=== PATIENT | female | born 1990 | race Caucasian/White ===

== ENCOUNTER 2022-11-05 22:39 | Emergency (ER) | payer OTHER, SELFPAY ==
[2022-11-05 22:44] VITALS: BP 129/74; PULSE 96; RESP 16; TEMP 37.1; O2SAT 97; BMI 28.0
--- NOTE | 2022-11-05 23:42 | ED.FALL1 ---
HPI - Fall General Chief Complaint: Fall Stated Complaint: FALL BACK AND ADB PAIN Time Seen by Provider: 11/05/22 23:33 Source: patient Source comment: patient Mode of arrival: walk-in Limitations: no limitations History of Present Illness HPI Narrative: The patient was at a friends, heard her child cry and ran up the stairs from the basement to see what was the matter. She lost her footing and fell, using her left forearm and her right hand to catch herself. She struck the left abdomen against the basement stairs. No head injury or LOC. No neck or back pain. She is 31 weeks . She feels the baby move but continues to have pain in the left abdomen. No meds taken for pain after the fall, which occurred around 9pm. She took Tylenol around 6pm at home. Related Data Allergies Allergy/AdvReac Type Severity Reaction Status Date / Time amoxicillin Allergy Verified 11/05/22 22:49 Penicillins Allergy Verified 11/05/22 22:49 [facility] Social History Smoking status: Current every day smoker Exam Narrative Exam Narrative: Nurses note and vital signs reviewed and patient is not hypoxic. afebrile General: The patient appears well and in no apparent distress. Patient is resting comfortably on cart. GCS = 15. Skin: Warm, dry, no pallor noted. Head: Normocephalic, atraumatic Neck: Supple, trachea mid-line. Full ROM and no cervical spinal tenderness. Eyes: PERRLA, EOMI ENT: No facial or oral injury noted Cardiovascular: Regular Rate and Rhythm Respiratory: Patient is in no distress, no accessory muscle use, lungs are clear to auscultation, no wheezing, rales or rhonchi Back: No thoracic or lumbar tenderness to palpation. Musculoskeletal: no sign of long bone fracture, no tenderness, no swelling. Moves all four extremities in all modalities with 5/5 strength. GI: Normal bowel sounds, gravid uterus. Suprapubic and LLQ tenderness to palpation, . No rebound, guarding, or rigidity noted. Neurological: A&O x4, normal equal social media developer strength, normal finger to nose, normal speech, normal coordination, normal motor, normal sensory. Psychiatric: Cooperative Constitutional Vital Signs - 24 hr 11/05/22 22:44 Temperature 98.7 F Pulse Rate [Monitor] 96 H Respiratory Rate 16 Blood Pressure [Left Arm] 129/74 H Pulse Oximetry 97 Oxygen Delivery Method Room Air Course Vital Signs Vital signs: Vital Signs Temperature 98.7 F 11/05/22 22:44 Pulse Rate 96 H 11/05/22 22:44 Respiratory Rate 16 11/05/22 22:44 Blood Pressure 129/74 H 11/05/22 22:44 Pulse Oximetry 97 11/05/22 22:44 Oxygen Delivery Method Room Air 11/05/22 22:44 Temperature 98.7 F 11/05/22 22:44 Pulse Rate 96 H 11/05/22 22:44 Respiratory Rate 16 11/05/22 22:44 Blood Pressure 129/74 H 11/05/22 22:44 Pulse Oximetry 97 11/05/22 22:44 Oxygen Delivery Method Room Air 11/05/22 22:44 MDM - Fall MDM Narrative Medical decision making narrative: patient fell and sustained blunt trauma to the left abdomen against the basement stairs. No long bone fracture identified and she did not hit her head or sustain injuries to the neck or back that require spinal radiographic testing. She was discharged from our ED and [facility]. her SENIOR GENETIC COUNSELOR is Dr Fuentes in [place]. She will need to see him for follow up Discharge Plan Discharge Chief Complaint: Fall Clinical Impression: Abdominal pain Patient Disposition: Home, Self-Care Time of Disposition Decision: 23:39 Additional Instructions: Patient will be discharged from the ED and go [facility] to have a >20 week evaluation after blunt abdominal trauma. Stand Alone Forms: Portal Instructions Referrals: JEZ FUENTES [Physician] - As needed
[2022-11-06] MEDS: ACETAMINOPHEN 500 MG TABLET 1000 MG PO (00:03)
== END 2022-11-06 00:06 | disposition home or self-care (01) ==
PROVIDERS: Emergency Provider Emergency Medicine
DX: O26.893 Other specified pregnancy related conditions, third trimester (principal); R10.9 Unspecified abdominal pain; Z3A.31 31 weeks gestation of pregnancy; Z91.81 History of falling
CPT/HCPCS: 99282

== ENCOUNTER 2023-05-06 17:24 | Emergency (ER) | payer OTHER, SELFPAY ==
[2023-05-06 17:30] VITALS: BP 137/89; PULSE 86; RESP 18; TEMP 36.6; O2SAT 98; BMI 29.1
--- NOTE | 2023-05-06 17:42 | XR_ITS ---
The [address] [address] Patient Name: AGAPITO LÓPEZ MRN: [id number] date: 1990 Sex: F Assigned Patient Location: ER Current Patient Location: Accession/Order Number: [id number] Exam Date: 05/06/2023 18:10 Report Date: 05/06/2023 18:37 At the request of: LEFTY PULIDO Procedure: XR cervical spine 2-3V EXAM: XR cervical spine 2-3V HISTORY: Neck pain COMPARISON: None. TECHNIQUE: 3 views FINDINGS: Maintenance of the normal cervical lordosis. Vertebral body heights and alignments exhibit no fracture or listhesis. The dens and lateral masses of C1 are symmetric. The intervertebral disc spaces are normal. No prevertebral soft tissue edema. XR/XR cervical spine 2-3V IMPRESSION: No visualized abnormality Electronically authenticated by: LILY BOWMAN Date: 05/06/2023 18:37
--- NOTE | 2023-05-06 17:42 | XR_ITS ---
[address] [address] Patient Name: AGAPITO LÓPEZ MRN: [id number] date: 1990 Sex: F Assigned Patient Location: ER Current Patient Location: Accession/Order Number: [id number] Exam Date: 05/06/2023 18:10 Report Date: 05/06/2023 18:38 At the request of: LEFTY PULIDO Procedure: XR shoulder RT min 2V EXAM: XR shoulder RT min 2V HISTORY: Pain COMPARISON: None. TECHNIQUE: 4 views FINDINGS: No osseous lesion, fracture, dislocation or subluxation. Joint spaces are normal. No visualized effusion. No visualized soft tissue edema. XR/XR shoulder RT min 2V IMPRESSION: Normal x-rays Electronically authenticated by: LILY BOWMAN Date: 05/06/2023 18:38
--- NOTE | 2023-05-06 17:44 | ED.BACK1 ---
Documented by User: NOAH Shipman 05/06/23 18:27 HPI - Back Pain/Injury General Chief Complaint: Back Pain/Injury Stated Complaint: back pain Time Seen by Provider: 05/06/23 17:24 Source: patient Mode of arrival: walk-in History of Present Illness HPI Narrative: Patient is a 32-year-old female who presents to the emergency department for the evaluation of right posterior shoulder and neck pain for the last 5 to 6 days. She denies any mechanism of injury or trauma, she does have a 3-month-old. She states the pain started in the right scapula and now radiates to the right trapezius, right shoulder and into the left side of the neck. She denies any peripheral paresthesias. She is not concerned for . No medications taken prior to arrival. She is breast-feeding intermittently but is supplementing with formula and does not have any issue using formula primarily for the next several days. Related Data Previous Rx's Medication Instructions Recorded ketorolac 10 mg tablet 10 mg PO TID PRN pain #10 tabs 05/06/23 methocarbamol 750 mg tablet 750 mg PO TID PRN pain #10 tabs 05/06/23 prednisone 20 mg tablet 60 mg (3 x 20 mg) PO DAILY 3 days 05/06/23 #9 tabs Allergies Allergy/AdvReac Type Severity Reaction Status Date / Time amoxicillin Allergy Verified 11/05/22 22:49 Penicillins Allergy Verified 11/05/22 22:49 Review of Systems ROS Constitutional Denies: fever or chills Ears, nose, mouth, and throat Denies: throat pain Cardiovascular Denies: chest pain Respiratory Denies: shortness of breath or cough Gastrointestinal Denies: nausea or vomiting Genitourinary Denies: decreased urine ouput Musculoskeletal Reports: back pain, neck pain and extremity pain Integumentary/Breast Denies: rash Neurological Denies: headache Endocrine Denies: excessive urination PFSH PFSH Social History Smoking status: Current every day smoker Exam Narrative Exam Narrative: Gen.: Awake, alert, in no distress Head: Normocephalic, atraumatic ENT: Moist mucous membranes; no bony point tenderness of the posterior cervical spine with diffuse tenderness of the paraspinal muscles of the right cervical spine, right trapezius area and right scapula Respiratory: No respiratory distress Extremities: Moves extremities equally, no injuries noted, normal environmental laboratory technician 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 2+ right radial pulse. Back: No bony point tenderness of the T-spine Psych: Normal mood and affect Neuro: No focal neuro deficit Skin: Warm, dry, intact Constitutional Vital Signs, click to edit/add: Last Vital Signs Temp 97.8 F 05/06/23 17:30 Pulse 86 05/06/23 17:30 Resp 18 05/06/23 17:30 BP 137/89 05/06/23 17:30 Pulse Ox 98 05/06/23 17:30 O2 Del Method Room Air 05/06/23 17:30 Course Vital Signs Vital signs: Vital Signs Temperature 97.8 F 05/06/23 17:30 Pulse Rate 86 05/06/23 17:30 Respiratory Rate 18 05/06/23 17:30 Blood Pressure 137/89 05/06/23 17:30 Pulse Oximetry 98 05/06/23 17:30 Oxygen Delivery Method Room Air 05/06/23 17:30 Temperature 97.8 F 05/06/23 17:30 Pulse Rate 86 05/06/23 17:30 Respiratory Rate 18 05/06/23 17:30 Blood Pressure 137/89 05/06/23 17:30 Pulse Oximetry 98 05/06/23 17:30 Oxygen Delivery Method Room Air 05/06/23 17:30 MDM - Back Pain/Injury MDM Narrative Medical decision making narrative: X-rays of the cervical spine and right shoulder with no evidence of acute bony abnormalities. Patient is neurovascularly intact. She was instructed to use formula instead of breast-feeding for the next several days while on medication. Rest, ice, gentle stretching. Follow-up with PCP and return to the ER if symptoms change or worsen Medical Records Attestation: I reviewed the patient's medical records. Discharge Plan Discharge Chief Complaint: Back Pain/Injury Clinical Impression: Strain of right trapezius muscle Patient Disposition: Home, Self-Care Time of Disposition Decision: 18:24 Condition: Good Prescriptions / Home Meds: New prednisone 20 mg tablet 60 mg PO DAILY 3 Days Qty: 9 0RF ketorolac 10 mg tablet 10 mg PO TID PRN (Reason: pain) Qty: 10 0RF methocarbamol 750 mg tablet 750 mg PO TID PRN (Reason: pain) Qty: 10 0RF Instructions: Muscle Strain (ED) Stand Alone Forms: Portal Instructions Referrals: HASEEB JEROME [Primary Care Provider] - 1 week Discharge Date/Time: 05/06/23 18:32 Documented by User: Brayden Sandoval MD 05/06/23 20:11 HPI - Back Pain/Injury General Chief Complaint: Back Pain/Injury Stated Complaint: back pain Time Seen by Provider: 05/06/23 17:24 Related Data Previous Rx's Medication Instructions Recorded ketorolac 10 mg tablet 10 mg PO TID PRN pain #10 tabs 05/06/23 methocarbamol 750 mg tablet 750 mg PO TID PRN pain #10 tabs 05/06/23 prednisone 20 mg tablet 60 mg (3 x 20 mg) PO DAILY 3 days 05/06/23 #9 tabs Allergies Allergy/AdvReac Type Severity Reaction Status Date / Time amoxicillin Allergy Verified 11/05/22 22:49 Penicillins Allergy Verified 11/05/22 22:49 PFSH PFSH Social History Smoking status: Current every day smoker Exam Constitutional Vital Signs, click to edit/add: Last Vital Signs Temp 97.8 F 05/06/23 17:30 Pulse 86 05/06/23 17:30 Resp 18 05/06/23 17:30 BP 137/89 05/06/23 17:30 Pulse Ox 98 05/06/23 17:30 O2 Del Method Room Air 05/06/23 17:30 Course Vital Signs Vital signs: Vital Signs Temperature 97.8 F 05/06/23 17:30 Pulse Rate 86 05/06/23 17:30 Respiratory Rate 18 05/06/23 17:30 Blood Pressure 137/89 05/06/23 17:30 Pulse Oximetry 98 05/06/23 17:30 Oxygen Delivery Method Room Air 12/13/23 17:30 Temperature 97.8 F 05/06/23 17:30 Pulse Rate 86 05/06/23 17:30 Respiratory Rate 18 05/06/23 17:30 Blood Pressure 137/89 05/06/23 17:30 Pulse Oximetry 98 05/06/23 17:30 Oxygen Delivery Method Room Air 05/06/23 17:30 MDM - Back Pain/Injury MDM Narrative Medical decision making narrative: X-rays of the cervical spine and right shoulder with no evidence of acute bony abnormalities. Patient is neurovascularly intact. She was instructed to use formula instead of breast-feeding for the next several days while on medication. Rest, ice, gentle stretching. Follow-up with PCP and return to the ER if symptoms change or worsen I, Dr Sandoval, have reviewed the above progress note and course of action in the ER; agree with the above. I have gone over history and physical, and discussed disposition and treatment plan with the patient. Discharge Plan Discharge Chief Complaint: Back Pain/Injury Clinical Impression: Strain of right trapezius muscle Patient Disposition: Home, Self-Care Time of Disposition Decision: 18:24 Condition: Good Prescriptions / Home Meds: New prednisone 20 mg tablet 60 mg PO DAILY 3 Days Qty: 9 0RF ketorolac 10 mg tablet 10 mg PO TID PRN (Reason: pain) Qty: 10 0RF methocarbamol 750 mg tablet 750 mg PO TID PRN (Reason: pain) Qty: 10 0RF Instructions: Muscle Strain (ED) Stand Alone Forms: Portal Instructions Referrals: HASEEB JEROME [Primary Care Provider] - 1 week Discharge Date/Time: 05/06/23 18:32
[2023-05-06] MEDS: KETOROLAC TROMETHAMINE 60 MG/2 ML VIAL IM (17:49)
== END 2023-05-06 18:32 | disposition home or self-care (01) ==
PROVIDERS: Emergency Provider Emergency Medicine
DX: S46.811A Strain of other muscles, fascia and tendons at shoulder and upper arm level, right arm, initial encounter (principal); X58.XXXA Exposure to other specified factors, initial encounter
CPT/HCPCS: 72040; 73030; 96372; 99284

== ENCOUNTER 2023-12-30 07:46 | Emergency (ER) | payer OTHER, SELFPAY ==
[2023-12-30 07:51] VITALS: BP 186/117; PULSE 96; TEMP 36.7; O2SAT 98; BMI 28.0
[2023-12-30 07:56] VITALS: BP 182/100
--- OUTSIDE RECORDS SUMMARY | 2023-12-30 08:02 | XMS_ITS | CCD ---
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 Pass (12/14/23 11:21 PM) Normal [facility] Man Sero SARS-CoV+SARS-CoV-2 (COVID-19) Ag IA.rapid Ql (Resp) Not Detected 1 (12/14/23 11:21 PM) Normal Not Detected [facility] Man Sero Comment on above: Interpretive Data: Jodie lai SquareKey Veritor System for Rapid Detection of SARS-CoV-2 is a chromatographic digital immunoassay intended for the direct and qualitative detection of SARS-CoV-2 nucleocapsid antigens in nasal swabs from individuals who are suspected of COVID-19 by their healthcare provider within the first five days of the onset of symptoms. Negative results should be treated as presumptive, do not rule out SARS-CoV-2 infection and should not be used as the sole basis for treatment or patient management decisions, including infection control decisions. Negative results should be considered in the context of a patient s recent exposures, history and the presence of clinical signs and symptoms consistent with COVID-19, and confirmed with a molecular assay, if necessary, for patient management. For in vitro diagnostic use. In the [facility], only for use under an Emergency Use Authorization. In the [place], this test has not been FDA cleared or approved; this test has been authorized by FDA under an EUA for use by authorized laboratories; use by laboratories certified under the CLIA, 42 U.S.C. 263a, that meet requirements to perform moderate, high, or waived complexity tests and at the Point of Care (POC), i.e., in patient care settings operating under a CLIA Certificate of Waiver, Certificate of Compliance, or Certificate of Accreditation. This test has been authorized only for the detection of proteins from SARS-CoV-2, not for any other viruses or pathogens; and, in the [facility], this test is only authorized for the duration of the declaration that circumstances exist justifying the authorization of emergency use of in vitro diagnostics for detection and/or diagnosis of the virus that causes COVID-19 under Section 564(b)(1) of the Act, 21 U.S.C. 360bbb-3(b)(1), unless the authorization is terminated or revoked sooner. Rapid COVID Antigen ([facility])on 12-14-2023 Rapid COV Int NEG Ctl Pass Normal [facility] Comment on above: Performed By: #### 2 [id number] #### [facility] [address] [place] [address] Rapid COV Int POS Ctl Pass Normal [facility] Comment on above: Performed By: #### 2 [id number] #### [facility] [address] [place] [address] SARS-CoV+SARS-CoV-2 (COVID-19) Ag IA.rapid Ql (Resp) Not detected Normal Not Detected [facility] Comment on above: Result Comment: The Gipis System for Rapid Detection of SARS-CoV-2 is a chromatographic digital immunoassay intended for the direct and qualitative detection of SARS-CoV-2 nucleocapsid antigens in nasal swabs from individuals who are suspected of COVID-19 by their healthcare provider within the first five days of the onset of symptoms. Negative results should be treated as presumptive, do not rule out SARS-CoV-2 infection and should not be used as the sole basis for treatment or patient management decisions, including infection control decisions. Negative results should be considered in the context of a patient?s recent exposures, history and the presence of clinical signs and symptoms consistent with COVID-19, and confirmed with a molecular assay, if necessary, for patient management. For in vitro diagnostic use. In the [place], only for use under an Emergency Use Authorization. In the [place], this test has not been FDA cleared or approved; this test has been authorized by FDA under an EUA for use by authorized laboratories; use by laboratories certified under the CLIA, 42 U.S.C. ?263a, that meet requirements to perform moderate, high, or waived complexity tests and at the Point of Care (POC), i.e., in patient care settings operating under a CLIA Certificate of Waiver, Certificate of Compliance, or Certificate of Accreditation. This test has been authorized only for the detection of proteins from SARS-CoV-2, not for any other viruses or pathogens; and, in the [place], this test is only authorized for the duration of the declaration that circumstances exist justifying the authorization of emergency use of in vitro diagnostics for detection and/or diagnosis of the virus that causes COVID-19 under Section 564(b)(1) of the Act, 21 U.S.C. ? 360bbb-3(b)(1), unless the authorization is terminated or revoked sooner. Performed By: #### 2 [id number] #### [address] [address] Physician Orderon 07-30-2023 Physician Order [id number] 4#1.00TIFF Normal [facility] Physician Orderon 03-23-2023 Physician Order [id number]# 1.00TIFF Normal [facility] Nursing Assessmenton 023 Nursing Assessment [id number] 6#1.00CD:127 Normal [facility] Insurance Correspondence Off iceon 01-13-2023 Insurance Correspondence Office [id number] 9#1.00CD:127 Normal [facility] Insurance Correspondence Off ice01-09-2023 Insurance Correspondence Office [id number] 1#1.00CD:127 Normal [facility] Progress Note-Physicianon Progress Note-Physician Patient: AGAPITO VARGAS Age: 32 years Sex: Female : 1990 Associated Diagnoses: None Author: MD Ean, Jeanine Telles Postoperative Information Post Operative Note: Day 1, OPTIMETRIX : [id number]. Anesthetic utilized: Regional: Epidural. Health Status Allergies: Allergic Reactions (Selected) Severe Cefdinir- Tongue swelling. Severity Not Documented Amoxil- Rash. Penicillins- Rash. Problem list: All Problems Tobacco use / SNOMED CT [id number] / Confirmed Added secondary to social history documentation. Maternal tobacco use / SNOMED CT 4311145168 / Confirmed Maternal tobacco use / SNOMED CT 0345960861 / Confirmed Maternal tobacco use / SNOMED CT 1698915000 / Confirmed History of low back pain / SNOMED CT 891233756 / Confirmed Missed miscarriage / SNOMED CT 4859648049 / Confirmed Smoker / SNOMED CT [id number] / Confirmed Added secondary to documentation in Social History. Hepatitis C / SNOMED CT [id number] / Confirmed pt. stated that she tested positive with first in 2015. pt. stated that she went to get treated after first , tested negative and was not treated. pt. states that she and children get tested at doctor's office, states she has not been positive since. History of drug use / SNOMED CT 5989905968 / Confirmed History of IBS / SNOMED CT 6301249168 / Confirmed Congenital fusion of lumbar spine / SNOMED CT 41376559 / Confirmed Extra lumbar vertebrae with sacralization Flank pain / SNOMED CT 796518053 / Confirmed Urine frequency / SNOMED CT 048580935 / Confirmed Straining to void / SNOMED CT 450231604 / Confirmed Ovarian cyst / SNOMED CT 564665514 / Confirmed Abnormal vaginal bleeding / SNOMED CT 892623507 / Confirmed Hematuria, microscopic / SNOMED CT 530765726 / Confirmed Leaking of urine / SNOMED CT 6139060261 / Confirmed Low back pain / SNOMED CT 783449000 / Confirmed Resolved: Low blood sugar / SNOMED CT 620191498 Resolved: / SNOMED CT 243357387 Resolved: / SNOMED CT 572486513 Resolved: / SNOMED CT 074927154 Resolved: / SNOMED CT 437184430 Resolved: / SNOMED CT 148677832 Resolved: Anxiety / SNOMED CT 62372830 Resolved: Depression / SNOMED CT 694318018 Physical Examination No qualifying data available General: Alert and oriented, No acute distress. Neurologic: Normal sensory, Normal motor function, No focal deficits. Review / Management Condition: Stable. Assessment Anesthetic outcome No post-epidural complications noted.. Epidural catheter removed by nursing staff. Epidural tip intact. Epidural site C/D/I without erythema, swelling or tenderness.. Plan Transfer/ Discharge: Condition stable. Normal [facility] Comment on above: Result Comment: Elec tronically Signed By: MD Mckoy Ahmad F\.br\Date and Time Signed: 01/09/23 09:50 EDT Progress Note-Physician Patient: AGAPITO VARGAS Age: 32 years Sex: Female : 1990 Associated Diagnoses: None Author: MD Mckoy Ahmad F Chief Complaint Intrauterine Health Status Allergies: Allergic Reactions (All) Severe Cefdinir- Tongue swelling. Severity Not Documented Amoxil- Rash. Penicillins- Rash. Current medications.Problem list: All Problems Tobacco use / SNOMED CT [id number] / Confirmed Added secondary to social history documentation. Maternal tobacco use / SNOMED CT 9019212706 / Confirmed Maternal tobacco use / SNOMED CT 6845779224 / Confirmed Maternal tobacco use / SNOMED CT 7177017814 / Confirmed History of low back pain / SNOMED CT 458660422 / Confirmed Missed miscarriage / SNOMED CT 8013600145 / Confirmed Smoker / SNOMED CT [id number] / Confirmed Added secondary to documentation in Social History. Hepatitis C / SNOMED CT [id number] / Confirmed pt. stated that she tested positive with first in 2016. pt. stated that she went to get treated after first , tested negative and was not treated. pt. states that she and children get tested at doctor's office, states she has not been positive since. History of drug use / SNOMED CT 6720339471 / Confirmed History of IBS / SNOMED CT 3983739468 / Confirmed Congenital fusion of lumbar spine / SNOMED CT 46915644 / Confirmed Extra lumbar vertebrae with sacralization Flank pain / SNOMED CT 199896538 / Confirmed Urine frequency / SNOMED CT 895097972 / Confirmed Straining to void / SNOMED CT 235166441 / Confirmed Ovarian cyst / SNOMED CT 873877029 / Confirmed Abnormal vaginal bleeding / SNOMED CT 636102939 / Confirmed Hematuria, microscopic / SNOMED CT 580615066 / Confirmed Leaking of urine / SNOMED CT 9828020749 / Confirmed Low back pain / SNOMED CT 682955623 / Confirmed Resolved: Low blood sugar / SNOMED CT 300509091 Resolved: / SNOMED CT 785839571 Resolved: / SNOMED CT 270948892 Resolved: / SNOMED CT 517405216 Resolved: / SNOMED CT 488809946 Resolved: / SNOMED CT 390189292 Resolved: Anxiety / SNOMED CT 93890212 Resolved: Depression / SNOMED CT 731198693 Review of Systems Respiratory: Negative. Cardiovascular: Negative. Hematology/Lymphatic s: No bruising tendency, No bleeding tendency. Neurologic: Negative. Physical Examination Please see VS flowsheet Please refer to Labor floor nursing records for ongoing vital signs, and for intake and output totals while epidural was running. General: Alert and oriented. Respiratory: Lungs are clear to auscultation. Cardiovascular: Regular rhythm. Neurologic: Alert. Review / Management Differential diagnosis: Active labor. OB Results Review Impression and Plan Plan Labor epidural at request of patient.. Procedure Epidural injection procedure Date/ Time: 01/04/2023 23:00:00. Confirmed: patient, procedure, site, safety procedures followed. Performed by: MD Mckoy Ahmad F. Informed consent: signed by patient. Indication: Active labor.. Location: lumbar. Physical Exam: Mallampati class 2 (soft palate, fauces, uvula visible), vital signs Documented vital signs. Preparation and technique: informed consent obtained (from patient before the procedure), positioned (sitting) sitting upright, sterile preparation of site (patient's back was sterilly prepped and draped) (in usual fashion, with 10 % povidone iodine, draped to expose affected area), local anesthesia (1% lidocaine was applied to the patient's back before the epidural was attempted) (lidocaine without epinephrine, _1_ cc injected subcutaneously), approach (midline) midline, needle (17 ga touhy) (placed via loss of resistance technique, At _L4-L5_ interspace.), aspiration (attempted for blood and CSF) Aspiration negative for blood and CSF, injectant (test dose consisting of 3 ml of 1.5% lodocaine with 1:200,000 epi) (test dose given, Epidural catheter inserted and secured at a depth of _11_ cm at skin., Test dose negative). [place] [employer] Anesthesiologists (ASA) physical status classification: Class II. Procedure tolerated: well. Complications: None. Professional Services Medications Administered: Epidural Medications Administered: Bolus dose consisted of 9 ml of 0.2% Ropivicaine, and 100 mcg of fentanyl (2 ml) . Then an epidural mix of 0.2% Ropivicaine, , and 2 mcg/ml of fentanyl was administered at 10 ml/hour with a PCEA bolus dose of 5cc q30min PRN. Normal [facility] Comment on above: Result Comment: Elec tronically Signed By: MD Ean, Jeanine Telles\.br\Date and Time Signed: 01/09/23 09:45 EDT Delivery Summaryon Delivery Summary DATE OF DELIVERY: 01/05/2023 The patient is a 32 year old, V, Para II, II, white female at 39 weeks and 1/7 who presented to Labor and Delivery for labor. Her course had been complicated by a smoking habit. She had artificial rupture of membranes, a gentle Pitocin augmentation which allowed her to make gradual progress through the latent phase of labor into the active phase of labor. She reached complete and complete and pushed through the second stage of labor spontaneously delivering a 6 pound 5 ounce male with Apgars of eight and eight. A short cord was noted at the time of delivery. Arterial cord pH obtained. The placenta delivered spontaneously intact. Uterus contracted down well. No repair was necessary and both mom and infant were doing okay in the Room. The was being monitored with pulse oximetry monitoring with good 100% sO2 regions with supplemental oxygen. Calos Fuentes M.D. lr Dictated: 01/07/2023 [id number] Transcribed: 01/07/2023 [facility] Comment on above: Result Comment: Elec tronically Signed By: Gina OLMOS, Calos Ledbetter\.br\Date and Time Signed: 01/08/23 08:01 EDT Discharge Instructionson Discharge Instructions [id number]#1.00CD:127 [facility] GetWell Education Videoon GetWell Education Video Patient Caring for Yourself After Vaginal Delivery Yes Normal [facility] GetWell Education Video : Getting Your Baby to Latch Yes Patient [facility] GetWell Education Video Patient How to Use a Breast Pump Yes [facility] GetWell Education Video 5 Ways to Prepare for Yes Patient Normal [facility] GetWell Education Video Yes Patient Car Seat Safety [facility] GetWell Education Video Yes Patient Your Baby [facility] GetWell Education Video Understanding Depression [facility] GetWell Education Video Safe Sleep for Babies Yes Patient [facility] GetWell Education Video Avoiding Infections in the Hospital Yes Patient [facility] GetWell Education Video Yes Patient How to Prevent Shaken Baby Syndrome [facility] GetWell Education Video Yes Patient How to Hand Express Breast Milk [facility] Inpatient Clinical Summaryon 01-07-2023 Inpatient Clinical Summary [address] [address] Clinical Summary Person Information Name: AGAPITO VARGAS Noemi/[facility] Age: 32 Years : 1990 Sex: Female PCP: Pily Garcia DO Marital Status: Single Phone: [phone] Race: White Ethnicity: Non- or Language: Citizen Of [place] Visit Id: Visit Reason: Speciality: Acuity: 2 PP Enc Type: Inpatient Med Service: Obstetrics Arrival: 01/04/2023 20:34:44 Discharge: 01/07/2023 12:20:00 Dispo Type: Home (Routine DC) Address: [address] [place] [id number] Provider Notes: Diagnosis: (spontaneous vaginal delivery); Smoker Problems Active Hepatitis C Smoker Low back pain Leaking of urine Hematuria, microscopic Abnormal vaginal bleeding Ovarian cyst Straining to void Urine frequency Flank pain Congenital fusion of lumbar spine History of low back pain History of IBS History of drug use Missed miscarriage Smoking Status: Current Every Day Smoker Functional Status: Sensory Deficits: History of Falls: Mobility Assistance Prior to Admission: Independent ADLs: Independent Current Level of Assistance for Self-Care/Mobility: Cognitive Status: Allergies Amoxil () penicillins (rash) cefdinir (Tongue swelling) Laboratory or Other Results This Visit (last charted value for your 01/04/2023 visit) Hematology 01/06/2023 6:58 AM Hct: 31.4 % -- Normal range between ( 34.0 and 46.0 ) HGB: 10.7 gm/dL -- Normal range between ( 12.0 and 16.0 ) RBC: 3.4 E12/L -- Normal range between ( 4.3 and 5.9 ) RDW: 14.2 % -- Normal range between ( 10.9 and 14.2 ) MCH: 31.4 pg -- Normal range between ( 27.0 and 34.0 ) MCHC: 34.0 gm/dL -- Normal range between ( 31.4 and 36.0 ) MCV: 92.4 fL -- Normal range between ( 80.0 and 100.0 ) MPV: 10.5 fL -- Normal range between ( 6.4 and 10.8 ) Platelet: 148.0 E9/L -- Normal range between ( 150.0 and 500.0 ) WBC: 10.8 E9/L -- Normal range between ( 4.0 and 11.0 ) Urinalysis 01/05/2023 0:35 AM UA Bili: Negative UA Color: Yellow UA Glucose: Negative UA Ketones: Negative UA Leuk Est: Negative UA Nitrite: Negative UA Protein: Negative UA RBC: 0-3 /HPF UA Squam Epithelial: 0-2 /HPF UA Urobilinogen: 0.2 EU/dL -- Normal range between ( 0.0 and 1.0 ) UA WBC: 0-5 /HPF UA Spec Desc: Reyna UA Blood: 1+ UA Clarity: Clear UA pH: 7.0 -- Normal range between ( 5.0 and 9.0 ) UA Spec Grav: 1.010 -- Normal range between ( 1.005 and 1.030 ) Blood Bank 01/04/2023 8:54 PM ABO/Rh: O POS ABSC Gel Interp: Negative Measurements: Height: 160.0 cm Weight: 76.4 kg Blood Pressure: 118 mmHg / 79 mmHg BMI: 29.84 kg/m2 Procedures No Procedures Documented Immunizations No Immunizations Documented This Visit Final Med List: cyclobenzaprine (cyclobenzaprine 10 mg Tab) diphenhydrAMINE (Unisom Sleep Gels) doxylamine (Unisom) 25 Milligram By Mouth every day. fluoxetine 40 Milligram By Mouth every day. fluoxetine (FLUoxetine 10 mg Cap) 1 Capsules By Mouth every day. ibuprofen (ibuprofen 600 mg Tab) 1 Tablets By Mouth every 6 hours. Refills: 0. multivitamin, ( Multivitamins) pyridoxine (Vitamin B6) 25 Milligram By Mouth every day. Care Team Members: Attending Physician: Calos Fuentes MD Consulting Physician: Calos Fuentes MD Referring Physician: Follow up: With: Address: When: Dr. Fuentes [phone] Within 6 weeks Comments: Call for any problems. Patient Education Information: Care After Vaginal Delivery Normal [facility] Inpatient Patient Summaryon 01-07-2023 Inpatient Patient Summary [place] [address] Patient Discharge Instructions PERSON INFORMATION Name: AGAPITO VARGAS Date of : 1990 Current Date: 01/07/2023 12:35:47 PHYSICIANS Admitting Physician: Gina OLMOS, Calos Ledbetter Primary Care Physician: Pily Garcia DO PCP Comment: Discharge Diagnosis: (spontaneous vaginal delivery); Smoker Condition at Discharge: Stable AGAPITO VARGAS has been given the following list of follow-up instructions, prescriptions, and patient education materials: PATIENT FOLLOW-UP INFORMATION Diet: Regular Activity: Expect mild pain, Expect minimal amount of drainage and/or bleeding, Activity as tolerated Wound Care Instructions: Remove Your Dressing IN: Days Call Your Doctor For: Persistent or heavy bleeding, Temperature above 101.5 degrees, Persistent vomiting IF UNABLE TO CONTACT YOUR PHYSICIAN AND YOU FEEL IT IS AN EMERGENCY, GO TO THE NEAREST EMERGENCY ROOM OR CALL 911 Home Treatment: Devices/Equipment: Special Services: Additional Instructions: Physician to provide the following pending test results: None Follow up: With: Address: When: Dr. Fuentes [phone] Within 6 weeks Comments: Call for any problems. In the event that this physician does not participate in your insurance network, please consult with your insurance company to find a nearby participating provider. Comment: RENE Mcneil SHALYN KAY, have received the attached patient education materials/instructio ns and have verbalized understanding. Patient Signature Date Clinican/Nurse Signature Date MEDICATION LIST Medications to Continue with No Changes Other Medications cyclobenzaprine (cyclobenzaprine 10 mg Tab) Last Dose: Next Dose: diphenhydrAMINE (Unisom Sleep Gels) Last Dose: Next Dose: doxylamine (Unisom) 25 Milligram By Mouth every day. Last Dose: Next Dose: fluoxetine 40 Milligram By Mouth every day. Last Dose: Next Dose: fluoxetine (FLUoxetine 10 mg Cap) 1 Capsules By Mouth every day. Last Dose: Next Dose: ibuprofen (ibuprofen 600 mg Tab) 1 Tablets By Mouth every 6 hours. Refills: 0. Last Dose: Next Dose: multivitamin, ( Multivitamins) Last Dose: Next Dose: pyridoxine (Vitamin B6) 25 Milligram By Mouth every day. Last Dose: Next Dose: Pharmacy Information: [facility] PATIENT EDUCATION INFORMATION Instructions: Care After Vaginal Delivery The following information offers guidance about how to care for yourself from the time you deliver your baby to 6?12 weeks after delivery ( period). If you have problems or questions, contact your health care provider for more specific instructions. Follow these instructions at home: Vaginal bleeding ? It is normal to have vaginal bleeding (lochia) after delivery. Wear a sanitary pad for bleeding and discharge. ? During the first week after delivery, the amount and appearance of lochia is often similar to a menstrual period. ? Over the next few weeks, it will gradually decrease to a dry, yellow-brown discharge. ? For most women, lochia stops completely by 4?6 weeks after delivery, but can vary. ? Change your sanitary pads frequently. Watch for any changes in your flow, such as: ? A sudden increase in volume. ? A change in color. ? Large blood clots. ? If you pass a blood clot from your vagina, save it and call your health care provider. Do not flush blood clots down the toilet before talking with your health care provider. ? Do not use tampons or douches until your health care provider approves. ? If you are not , your period should return 6?8 weeks after delivery. If you are feeding your baby breast milk only, your period may not return until you stop . Perineal care ? Keep the area between the vagina and the anus (perineum) clean and dry. Use medicated pads and pain-relieving sprays and creams as directed. ? If you had a surgical cut in the perineum (episiotomy) or a tear, check the area for signs of infection until you are healed. Check for: ? More redness, swelling, or pain. ? Fluid or blood coming from the cut or tear. ? Warmth. ? Pus or a bad smell. ? You may be given a squirt bottle to use instead of wiping to clean the perineum area after you use the bathroom. Pat the area gently to dry it. ? To relieve pain caused by an episiotomy, a tear, o (more content not included)... Normal [facility] CBC w/Indiceson 01-06-2023 Erythrocyte distribution width (RBC) [Ratio] 14.2 % Normal 10.9-14.2 [facility] Comment on above: Performed By: #### 2 [id number] #### [facility] [address] [place] [address] Hematocrit (Bld) [Volume fraction] 31.4 % Low 34.0-46.0 [facility] Comment on above: Performed By: #### 2 [id number] #### [facility] [address] [place] [address] Hemoglobin (Bld) [Mass/Vol] 10.7 g/dL Low 12.0-16.0 [facility] Comment on above: Performed By: #### 2 [id number] #### [facility] [address] [place] [address] MCH (RBC) [Entitic mass] 31.4 pg Normal 27.0-34.0 [facility] Comment on above: Performed By: #### 2 [id number] #### [facility] [address] [place] [address] MCHC (RBC) [Mass/Vol] 34.0 g/dL Normal 31.4-36.0 [facility] Comment on above: Performed By: #### 2 [id number] #### [facility] [address] [place] [address] MCV (RBC) [Entitic vol] 92.4 fL Normal 80.0-100.0 [facility] Comment on above: Performed By: #### 2 [id number] #### [facility] [address] [place] [address] Platelet mean volume (Bld) [Entitic vol] 10.5 fL Normal 6.4-10.8 [facility] Comment on above: Performed By: #### 2 [id number] #### [facility] [address] [place] [address] Platelets (Bld) [#/Vol] 148.0 E9/L Low 150.0-500.0 [facility] Comment on above: Performed By: #### 2 [id number] #### [facility] [address] [place] [address] RBC (Bld) [#/Vol] 3.4 E12/L Low 4.3-5.9 [facility] Comment on above: Performed By: #### 2 [id number] #### [facility] [address] [place] [address] WBC corrected for nucl RBC Auto (Bld) [#/Vol] 10.8 E9/L Normal 4.0-11.0 [facility] Comment on above: Performed By: #### 2 [id number] #### [facility] [address] [place] [address] Consenton 01-05-2023 Consent [id number] #1.00CD:127 Normal [facility] Insurance Correspondence Off iceon 01-05-2023 Insurance Correspondence Office [id number] 2#1.00CD:127 Normal [facility] Insurance Correspondence Office [id number] 1#1.00CD:127 Normal [facility] UA With Cult Reflexon 2022 Bilirubin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 blood pressure 62 mm[Hg] John ANDREZ [facility] 09-05-2022 17:45-0400 Heart rate 84 /min Jonh ANDREZ [facility] 09-05-2022 17:45-0400 Mean blood pressure 80 mm[Hg] John ANDREZ [facility] 09-05-2022 17:45-0400 Respiratory rate 20 /min John ANDREZ [facility] 09-05-2022 17:45-0400 Systolic blood pressure 116 mm[Hg] John ANDREZ [facility] Encounters Encounter Date Encounter Type Care Provider Facility Start: 12-14-2023 End: 12-15-2023 Emergency department patient visit Oleksandr Allen [facility] Start: 07-30-2023 End: 07-30-2023 ambulatory Calos Fuentes Facility:[facility] Start: 07-30-2023 End: 07-30-2023 Lab Drop off Calos Fuentes [facility] Start: 03-23-2023 End: 03-23-2023 ambulatory Calos Fuentes Facility:[facility] Start: 03-23-2023 End: 03-23-2023 Lab Drop off Calos Fuentes [facility] Start: 01-04-2023 End: 01-07-2023 Evaluation and management of inpatient Calos Fuentes Facility:[facility] Start: 12-23-2022 End: 12-23-2022 ambulatory Calos Fuentes Facility:[facility] Start: 12-23-2022 End: 12-23-2022 Lab Drop off Calos Fuentes [facility] Start: 12-07-2022 End: 12-07-2022 OB Triage Calos Khloe Fuentes [facility] Start: 10-23-2022 End: 10-23-2022 Patient encounter procedure Caols Fuentes [facility] Start: 09-21-2022 End: 09-21-2022 ambulatory Dolores Ye Other [facility] Start: 09-21-2022 Office outpatient vi sit 25 minutes Dolores Ye [facility] Start: 09-06-2022 End: 10-23-2022 Pre-admission assessment John MAGUIRE [facility] Start: 09-05-2022 End: 09-05-2022 OB Triage John MAGUIRE [facility] Start: 06-17-2022 End: 06-17-2022 Patient encounter procedure Calos Fuentes [facility] Start: 05-20-2022 End: 05-20-2022 Lab Drop off Calos Fuentes [facility] Start: 05-07-2022 End: 05-07-2022 Patient encounter procedure Calos Fuentes [facility] Start: 08-09-2020 End: 08-09-2020 ambulatory UNKNOWN PROVIDER Facility:[place] Start: 08-08-2020 End: 08-08-[address] GUILLERMO ARNOLD Facility: Procedures Date Procedure Procedure Detail Performing Clinician Colonoscopy Calos Fuentes Dilitation & Suction Curettage Calos Fuentes Immunizations Immunization Date Immunization Notes Care Provider Fa cili 05-24-2016 influenza, seasonal, injectable Calos Fuentes [facility] Comment on above: Early/Late Reason: N ursing Judgment 05-24-2016 tetanus toxoid, redu odalis diphtheria toxoid, and acellular pertussis vaccine, adsorbed Calos Fuentes [facility] Comment on above: Reason for Medicatio n: Other (see comment) Payers Date Payer Category Payer Unknown [id number] [id number] 1990 Unknown [id number] 1990 Unknown [id number] 2.16.8 [id number] 1991 Unknown [id number] 2.16.8 [id number] 1991 Unknown [id number] 2.16.8 [id number] 1991 Unknown [id number] 2.16.8 [id number] 1991 Unknown [id number] 2.16.8 [id number] 1991 Unknown [id number] 2.16.8 [id number] 1958 Unknown [id number] Social History Date Type Detail Facility Start: 06-17-2020 End: 01-04-2023 Tobacco smoking status Heavy tobacco smoker (finding) [facility] Comment on above: PPD smoker Tobacco smoking status Never [facility] Comment on above: PPD smoker Sex Assigned At Female [facility] Start: 12-14-2023 Tobacco smoking status Ex-smoker (fi nding) [facility] Functional Status Date Assessment Result Facility 12-14-2023 Functional Status N/A [facility] 12-07-2022 Functional Status N/A [facility] 09-05-2022 Functional Status N/A [facility] Clinical Notes 05-07-2022 to 12-15-2023 Note Date & Type Note Facility 12-15-2023 Evaluation + Plan note Extrac yvonne from: Title:ED Note Author:Román ALFREDO, Kal May te:12/15/23 Lower resp. tract infection (J22: Unspecified acute lower respiratory infection) Orders: azithromycin, 500 mg = 2 tab(s), Tab, Oral, Once, Stop date 12/15/23 0:15:00 EDT, STAT, Start date 12/15/23 0:15:00 EDT, 12/15/23 0:15:00 EDT azithromycin, 250 mg, Oral, As Directed, # 6 tab(s), Refills(s) 0, [id number], 162.6, cm, 12/14/23 22:17:00 EDT, Height/Length Dosing, 82.4, kg, 12/14/23 22:17:00 EDT, Weight Dosing brompheniramine/dextromethorphan/PSE, 5 mL, Oral, QID for cough and congestion, 200 mL, Refill(s) 0, [facility]/pharmacy #[id number], 162.6, cm, 12/14/23 22:17:00 EDT, Height/Length Dosing, 82.4, kg, 12/14/23 22:17:00 EDT, Weight Dosing methylPREDNISolone, = 1 packet(s), Oral, As Directed, as directed on package labeling, X 6 day(s), # 21 tab(s), Refills(s) 0, [id number], 162.6, cm, 12/14/23 22:17:00 EDT, Height/Length Dosing, 82.4, kg, 12/14/23 22:17:00 EDT, Weight Dosing predniSONE, 60 mg = 3 tab(s), Tab, Oral, Once, Stop date 12/15/23 0:15:00 EDT, STAT, Start date 12/15/23 0:15:00 EDT, 12/15/23 0:15:00 EDT Rapid COVID Antigen ([facility]) XR Chest 2 Views [facility]07-22-2024 Hospital Discharge instructions Follow Up Care 12/14/2023 21:57:22 With:Pily Garcia Address: [address] [place], [place] [address]dict [place], [address] , [facility] [address] [id number]- Business (1) When:12/18/2023 Comments:Call for diagnosis based follow up [facility]08-17-2023 NoteHOSPITAL REGULATIONS: All Positive and Important Negative Findings Shall Be Recorded DATE ADMITTED: 01/04/2023 INTERVAL NOTE The patient is a 32 year old, V, Para II, II, white female who presented to Labor and Delivery for labor. Her course had been complicated by a smoking habit. She had need for Fluoxetine through the course of , otherwise relatively uncomplicated. We anticipate spontaneous vaginal delivery. Please see records for details. Calos Fuentes M.D. aide Dictated: 01/07/2023 [id number] Transcribed: 01/07/2023[facility] on above:Result Comment: Electronically Signed By: Calos Fuentes MD\.br\Date and Time Signed: 01/08/23 08:01 [id number] NoteDATE OF DISCHARGE: 01/07/2023 The patient is without complaints. Positive flatus. Positive void. Vital signs are stable, afebrile. Breasts non-tender, non-pathologic. Abdomen fundus firm and below the umbilicus. She has scant lochia. The perineum is intact. The patient is ready for release. Good instructions are given. The patient is to return to my office in six weeks. She is given the following prescriptions for her home use: Motrin and vitamins. DISCHARGE DIAGNOSIS: Vaginal delivery. Course: Smoking habit. Intrapartum Course: Spontaneous vaginal delivery of a 6 pound 5 ounce male with Apgars of eight and eight. The patient required supplemental oxygen in the Delivery Suite, otherwise without complication. Course: Without complication. Frantz Watkins Dictated: 01/07/2023 [id number] Transcribed: 01/07/2023[facility] HospitalComment on above:Result Comment: Electronically Signed By: Calos Fuentes MD\.br\Date and Time Signed: 01/08/23 08:01 [id number] NoteThe following Patient Education Materials have been given to the patient: [facility] Evaluation + Plan note Diagnostic Tests Pending * Group B Streptococcus colonization by PCR 12/23/22 [facility]07-16-2023 Hospital Discharge instructions Follow Up Care 12/07/2022 14:27:58 With:Calos Fuentes Address: [address] [place], [place] [id number] [facility] (1) When:12/09/2022 Comments:Appointment has already been scheduledCall for any problems.Call for fever > 100.5 FCall for severe abdominal painCall physician for heavy vaginal bleedingCall physician if symptoms worsenReturn for contractions closer, longer,Return for decreased movement [facility]07-16-2023 Evaluation + Plan note Diagnostic Tests Pending * Urine Culture 12/07/22 [facility]06-01-2023 Evaluation + Plan note Diagnostic Tests Pending * HIV Screen 4th Generation wRfx 10/23/22 * RPR with Conf Rfx 10/23/22 [facility]04-30-2023 Evaluation note* Encounter Date Diagnosis Assessment Notes Treatment Notes Treatment Clinical Notes Aug, Sore throat (ICD-10 - J02.9) Aug, Seasonal allergic rhinitis due to pollen (ICD-10 - J30.1) Advised patient that rapid strep test was negative today in office. Physical exam is consistent with allergic rhinitis, will send in Rx of cetirizine and Flonase which are both safe in . Encouraged supportive care as directed, increase fluids and rest, Tylenol/Motrin as directed, OTC cough/cold remedies as directed on packaging, cool mist humidifier, throat lozenges. Discussed infection control practices such as good hand washing and mask wearing. Patient to follow up with PCP if symptoms persist or worsen despite treatment. Immediate eval for SOB, difficulty breathing, chest pain, fevers that do not break with antipyretic or any other concerning symptoms as reviewed on patient education handout. Patient verbalizes understanding and is agreeable to treatment plan. Patient left in stable condition. [facility] 04-14-2023 Hospital Discharge instructions Follow Up Care 09/05/2022 17:24:21 With:Calos Fuentes Address: [facility] [place] [id number]- [facility] (1) When:10/01/2022 Comments:Call for any problems.Call for fever > 100.5 FCall for severe abdominal painCall physician for heavy vaginal bleedingCall physician if symptoms worsenReturn for contractions closer, longer, harderCall for earlier appt if symptoms continue [facility]12-27-2022 Evaluation + Plan note Diagnostic Tests Pending * PAP [id number] [facility]12-14-2022 Evaluation + Plan note Diagnostic Tests Pending * Rubella Antibody IgG 05/07/22 * RPR with Conf Rfx 05/07/22 * Hepatitis B Surface Antigen 05/07/22 * Urine Culture 05/07/22 * Cystic Fibrosis Profile DNA Analysis 05/07/22 [facility] - Reported* Type Description Date Medical History back pain Medical History 25 weeks Surgical History D&C [facility] Hospital course Narrative No data available for this section [facility] No data available for this section [facility] No data available for this section [facility] Summary Purpose Family History No Family History Records FoundNo Family History Records Found No data available for this section No data available for this section No data available for this section No Family History Records FoundNo Family History Records Found Advance Directives No Advanced Directives Records FoundNo Advanced Directives Records FoundNo Advanced Directives Records FoundNo Advanced Directives Records Found Additional Source Comments INFORMATION SOURCE (unrecogn ized section and content) DATE CREATED AUTHOR 10/24/2020 [facility] DATE CREATED AUTHOR AUTHOR'S ORGANIZ ATION 06/29/2021 [facility] DATE CREATED AUTHOR AUTHOR'S ORGANIZ ATION 12/17/2023 [facility] Patient Care team informatio n (unrecognized section and content) Personnel Name: Pily Garcia DO Address: Address: [address] [place] [address] Personnel Name: Pily Garcia DO Address: Address: [address] [place] [address] Personnel Name: Pily Garcia DO Address: Address: [address] [place] [address] Personnel Name: Pily Garcia DO Address: Address: [address] [place] [address] Personnel Name: Pily Garcia DO Address: Address: [address] [place] [address] [place] [address]- [place] Personnel Name: Pily Garcia DO Address: Address: [facility] Yosi Mendoza, [address] Personnel Name: Pily Garcia DO Address: Address: [facility] Yosi Mendoza C, [address] Personnel Name: Pily Garcia DO Address: Address: [facility] [place]za, [address] Personnel Name: Pily Garcia DO Address: Address: [facility] [place]endoza, [address] Personnel Name: Pily Garcia DO Address: Address: [facility] [place]za, [address] Personnel Name: Pily Garcia DO Address: Address: [facility] [place]endoza, [address] REASON FOR VISIT (unrecogniz ed section and content) SINUS CONGESTION, EARACHE, FOR RECORDS PERTAINING TO PATIENTS WHO ARE OR HAVE BEEN ENROLLED IN A CHEMICAL DEPENDENCY/SUBSTANCEABUSE PROGRAM, SOME INFORMATION MAY BE OMITTED. This clinical summary was aggregated from multiple sources. Caution should be exercised in using it in the provision of clinical care. This summary normalizes information from multiple sources, and as a consequence, information in this document may materially change the coding, format and clinical context of patient data. In addition, data may be omitted in some cases. CLINICAL DECISIONS SHOULD BE BASED ON THE PRIMARY CLINICAL RECORDS. [facility] [employer] [facility]. provides no warranty or guarantee of the accuracy or completeness of information in this document.
--- NOTE | 2023-12-30 08:06 | XR_ITS ---
The [address] [address] Patient Name: AGAPITO LÓPEZ MRN: [id number] date: 1990 Sex: F Assigned Patient Location: ER Current Patient Location: ED.MAIN Accession/Order Number: [id number] Exam Date: 12/30/2023 08:12 Report Date: 12/30/2023 08:26 At the request of: KATIE BERMUDEZ Procedure: XR chest 2V EXAM: Chest x-ray HISTORY: . cough . COMPARISON: None. TECHNIQUE: Frontal and lateral chest FINDINGS: Heart is normal in size. There is slight prominence of the bronchovascular markings. Lungs are free of focal infiltrates. No bony abnormality is appreciated. XR/XR chest 2V IMPRESSION: Slight prominence of the bronchovascular markings. Findings could be due to bronchitis. No consolidation noted. Electronically authenticated by: LILY GAMING Date: 12/30/2023 08:26
--- NOTE | 2023-12-30 08:09 | ED_ITS ---
HPI HPI - General Adult General Chief complaint: Upper Respiratory Infection Stated complaint: FLU LIKE SYMPTOMS Time Seen by Provider: 12/30/23 07:58 Mode of arrival: walk-in History of Present Illness HPI narrative: Patient presented to the emergency department for evaluation of not feeling well. Patient states that a couple weeks ago she was sick, for 3 days, went to [facility], had a chest x-ray that showed some fluid on her lungs, they gave her an antibiotic, and a steroid. She states she was fine after 3 to 4 days. She states she went there the of last month. Patient states that she was fine after 3 to 4 days on treatment. Patient now states that since Thursday she has been feeling sick again, nonproductive cough, nasal congestion, rhinorrhea, generalized headaches, mild, myalgias, arthralgias, nausea, vomiting, diarrhea. Has been overall not feeling well. No other complaints at this time Related Data Home Medications ?Medication ?Instructions ?Recorded ?Confirmed norethindrone 1 mg-ethinyl 1 tab PO DAILY 12/30/23 12/30/23 estradiol 20 mcg (24)-iron 75 mg (4) tablet (Blisovi 24 Fe) Previous Rx's ?Medication ?Instructions ?Recorded benzonatate 100 mg capsule 100 mg PO TID PRN cough #20 caps 12/30/23 Allergies Allergy/AdvReac Type Severity Reaction Status Date / Time amoxicillin Allergy Verified 11/05/22 22:49 Penicillins Allergy Verified 11/05/22 22:49 Opioid HPI Opioid Management Most Recent Opioid Data: Last Pain Scale 8 11/06/22 00:03 Review of Systems ROS Narrative Negative unless otherwise stated in the HPI PFSH [facility] Social History Smoking status: Current every day smoker Exam Narrative Exam Narrative: General: NAD, AAOx3, no distress Eyes: PERRL, EOMI, lids/conjunctiva normal. HEENT: NCAT, mmm, TMs normal bilaterally. No lymphangitis/lymphedema, midline uvula, no exudates, normal tonsils without hypertrophy or exudates Neck: Supple, no LAD, negative Kernig/Brudzinski, non meningeal, no bruit Respiratory: respiratory effort normal, speaks in full sentences, no tripod position, no accessory muscle use. Lungs clear to auscultation without rhonchi, wheezes, rales Cardiac: Regular rate and rhythm, no edema, regular s1/s2, no m/g/r Abdomen: Soft, ND/NT. No evidence of fluid wave. No pulsatile masses on exam, rebound tenderness, Ryan sign or pain over Mcburney's point. Ext: No abnormal range of motion, no swelling. Skin: Warm, pink and dry. No rashes, dermatoses, petechiae or lesions. Constitutional Vital Signs, click to edit/add: Last Vital Signs Temp 98.1 F 12/30/23 07:51 Pulse 96 H 12/30/23 07:51 Resp 18 12/30/23 07:51 BP 182/100 H 12/30/23 07:56 Pulse Ox 98 12/30/23 07:51 Course Vital Signs Vital signs: Vital Signs Temperature 98.1 F 12/30/23 07:51 Pulse Rate 96 H 12/30/23 07:51 Respiratory Rate 18 12/30/23 07:51 Blood Pressure 186/117 H 12/30/23 07:51 Pulse Oximetry 98 12/30/23 07:51 Temperature 98.1 F 12/30/23 07:51 Pulse Rate 96 H 12/30/23 07:51 Respiratory Rate 18 12/30/23 07:51 Blood Pressure 182/100 H 12/30/23 07:56 Pulse Oximetry 98 12/30/23 07:51 Medical Decision Making [facility] Narrative Medical decision making narrative: [facility] Patient with history as above presented with URI symptoms. History obtained from patient. Patient was nontoxic, stable. Ambulatory. Exam as above. EKG reviewed. Labs reviewed. Independently reviewed imaging. Reviewed external records. Differential diagnosis considered. Overall presentation is consistent with viral syndrome, bronchitis Pt who presented to the ER today for URI symptoms. Patient on exam was well appearing and non toxic appearing. Vitals were reviewed. Patient has no symptoms of otitis media, pneumonia, bacterial pharyngitis or other serious bacterial illness. Respiratory status is unremarkable. At this point in time, patient likely has viral syndrome with no indications for antibiotics. Given benign exam and radiation risk, there is no indication for xray imaging. I have recommended fluids and motrin for symptomatic control. Close follow up with PCP. Advanced guidance has been given. Vss, pex is benign at this time. Pt to fu with pcp 1-2 days for reeval, rter should sx worsen, persist or become worrysome in any way. Pt expressed understanding and agreement with plan of care at this time. Will fu as planned. Pt stable for discharge. Medical Records Medical records reviewed: Yes I reviewed the patient's medical records Lab Data Lab results reviewed: Yes I reviewed the patient's lab results Labs: Lab Results 12/30/23 Range/Units 08:13 Influenza Type A Ag Negative Influenza Type B Ag Negative SARS-CoV-2 Ag (CV2AG) Negative (NEGATIVE) Imaging Data Chest x-ray: Radiologist's impression: ITS Impressions Chest X-Ray 12/30/23 08:06 IMPRESSION: Slight prominence of the bronchovascular markings. Findings could be due to bronchitis. No consolidation noted. Electronically authenticated by: LILY GAMING Date: 12/30/2023 08:26 Discharge Plan Discharge Stand Alone Forms: Portal Instructions Chief Complaint: Upper Respiratory Infection Clinical Impression: Acute viral syndrome, Bronchitis Patient Disposition: Home, Self-Care Time of Disposition Decision: 08:51 Condition: Good Prescriptions / Home Meds: New benzonatate 100 mg capsule 100 mg PO TID PRN (Reason: cough) Qty: 20 0RF No Action norethindrone-e.estradiol-iron [Blisovi 24 Fe] 1 mg-20 mcg (24)/75 mg (4) tablet 1 tab PO DAILY Print Language: Lao Instructions: Acute Bronchitis (ED), Viral Syndrome (ED) Additional Instructions: Follow-up with your PCP in the next 1 to 2 days. Return to the emergency d epartment should symptoms worsen or become worrisome in any way. Referrals: HASEEB JEROME [Primary Care Provider] - 1 week
[2023-12-30 08:34] LABS: Influenza Virus A Antigen Negative; Influenza Virus B Antigen Negative; Internal Control Within Normal Limits; SARS-CoV-2 Ag NEGATIVE (NEGATIVE)
[2023-12-30 08:59] VITALS: BP 158/88; PULSE 86; O2SAT 98
== END 2023-12-30 09:08 | disposition home or self-care (01) ==
PROVIDERS: Emergency Provider Emergency Medicine
DX: J40 Bronchitis, not specified as acute or chronic (principal); B34.9 Viral infection, unspecified; F17.200 Nicotine dependence, unspecified, uncomplicated; Z20.822 Contact with and (suspected) exposure to COVID-19
CPT/HCPCS: 71046; 87804; 87811; 99284

== ENCOUNTER 2024-02-05 12:54 | Emergency (ER) | payer OTHER, SELFPAY ==
[2024-02-05 13:01] VITALS: BP 133/90; PULSE 94; TEMP 36.7; O2SAT 95; BMI 29.2
--- OUTSIDE RECORDS SUMMARY | 2024-02-05 13:07 | XMS_ITS | CCD ---
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 Name Role Phone DR GUILLERMO ARNOLD Attending Unavailable CLAYTON, DR LI Consulting Unavailable CLAYTON, DR LI Admitting Unavailable REQUEST, DR NONE LISTED Primary Care Unavaila ble PROVIDER, UNKNOWN Attending Unavailable PROVIDER, UNKNOWN Admitting Unavailable PATIENT, SELF Referring Unavailable Pily Garcia Primary Care Physician [phone] Dolores Ye Unavailable Calos Fuentes Admitting Unavailable [...] Unavailable Gina, Calos Ledbetter Admitting Unavailable Gina, Claos Ledbetter Attending Unavailable Gina, Calos Ledbetter Admitting Unavailable Gina, Calos Ledbetter Attending Unavailable DokkenDO Oleksandr Attending Unavailable Allergies Allergy Classification Reported Allergen(s) Allergy Type Date of Onset Reaction(s) Facility Penicillins (antibiotic) (2 sources) Amoxicillin; Translations: [Penicillins] Drug Allergy 6 [facility] Repository (13 sources) Amoxicillin; Translations: [AMOXICILLIN] Drug Allergy 1 Cutaneous eruption (morphologic abnormality) [facility] (13 sources) Penicillins; Translations: [PENICILLINS] Propensity to adverse reactions to drug (disorder) 1 rash [facility] (12 sources) cefdinir; Translations: [cefdinir] Drug Allergy Tongue swelling (finding) [facility] (1 source) Penicillin G Drug Allergy Unknown [facility] Other (1 source) Amoxicillin; Translations: [Amoxil] Drug Allergy [facility] Repository Medications Current Medications Medication Drug Class(es) Dates Sig (Normalized) Sig (Original) azithromycin 250 mg oral tablet (1 source) Macrolide Antimicrobial Start: 12-15-2023 azithromycin 250 mg Tab 250 mg, Oral, As Directed, # 6 tab(s), Refills(s) 0, Pharmacy: [facility]/pharmacy #[id number], 162.6, cm, 12/14/23 22:17:00 EDT, Height/Length Dosing, 82.4, kg, 12/14/23 22:17:00 EDT, Weight Dosing Start Date: 12/15/23 Status: Ordered brompheniramine maleate 0.4 mg/ml / dextromethorphan hydrobromide 2 mg/ml / pseudoephedrine hydrochloride 6 mg/ml oral solution (1 source) alpha-Adrenergic Agonist, Uncompetitive S-iurxxr-J-asparta te Receptor Antagonist, Sigma-1 Agonist Start: 12-15-2023 take 5 mL by mouth four times daily for cough and congestion Bromfed DM oral syrup 5 mL, Oral, QID for cough and congestion, 200 mL, Refill(s) 0, [facility]/pharmacy #[id number], 162.6, cm, 12/14/23 22:17:00 EDT, Height/Length [...] Ordered Start: 09-05-2022 take 1 capsule by [facility] daily FLUoxetine 10 mg Cap [...] q6hr, # 15 tab(s), Refills(s) 0, Pharmacy: [facility] #[id number], 162.5, cm, 12/03/19 22:18:00 EDT, Height/Length Measured, 69.5, kg, 12/03/19 22:18:00 EDT, Weight Measured Start Date: 12/06/19 Status: Ordered methylPREDNISolone 4 mg oral tablet (1 source) Corticosteroid Start: 12-15-2023 End: 12-21-2023 Medrol 4 mg Tab = 1 packet(s), Oral, As Directed, as directed on package labeling, X 6 day(s), # 21 tab(s), Refills(s) 0, Pharmacy: [facility]/pharmacy #[id number], 162.6, cm, 12/14/23 22:17:00 EDT, Height/Length [...] 2023 ED Clinical Summary ED Clinical Summary [place] [id number] ED Clinical Summary Person Information Name: AGAPITO VARGAS Noemi/[facility] Age: 33 Years : 1990 Sex: Female Language: [place] Citizen PCP: Pily Garcia DO Marital Status: Single Phone: [phone] Visit Id: Visit Reason: Body aches; Medical [...] 12/15/2023 00:24:42 12/15/2023 00:24:42 12/15/2023 00:24:42 ADDRESS: [address] [place] [phone] PHYS DOC NOTES: MEDICAL INFORMATION: Prescriptions Given: New Medications [facility]/pharmacy #[id number], [address], [place] [id number], [phone] azithromycin (azithromycin 250 mg Tab) 250 Milligram [...] Pily Garcia [address], [address], [facility] [address] [place] [address] orderTalk (1) In 3 days 12/18/2023 Comments: Call Dr for diagnosis based follow up DIAGNOSIS: Lower resp. tract infection Normal [facility] ED Note-Physicianon 12-15-19 ED Note-Physician ED [...] and Complexity of Problems Differential Diagnosis: [] [facility] Data External documents reviewed: [] My [...] Directed, # 6 tab(s), Refills(s) 0, Pharmacy: [facility]/pharmacy #[id number], 162.6, cm, 12/14/23 22:17:00 EDT, Height/Length Dosing, 82.4, kg, 12/14/23 22:17:00 EDT, Weight Dosing brompheniramine/dext romethorphan/PSE, 5 mL, Oral, QID for cough and congestion, 200 mL, Refill(s) 0, [facility]/pharmacy #[id number], 162.6, cm, 12/14/23 22:17:00 EDT, Height/Length Dosing, 82.4, kg, 12/14/23 22:17:00 EDT, Weight Dosing methylPREDNISolone, = 1 packet(s), Oral, As Directed, as directed on package labeling, X 6 day(s), # 21 tab(s), Refills(s) 0, Pharmacy: [facility]/pharmacy #[id number], 162.6, cm, 12/14/23 22:17:00 EDT, Height/Length Dosing, 82.4, kg, 12/14/23 22:17:00 EDT, Weight Dosing predniSONE, 60 mg = 3 tab(s), Tab, Oral, Once, Stop date 12/15/23 0:15:00 EDT, STAT, Start date 12/15/23 0:15:00 EDT, 12/15/23 0:15:00 EDT Rapid COVID Antigen ([facility] XR Chest 2 Views Medications Administered Given [...] [address], [address], [address] [address] [place] [address] [facility] (1) Additional Instructions: Call Dr for diagnosis based follow up Attestation Patient seen and evaluated by the physician safety assistant. Attending (more content not included)... Normal [facility] Comment on above: Result Comment: Elec tronically Signed By: Román ALFREDO, Kal Pelaez\.br\Date and Time Signed: 07/23/24 01:16 EDT\.br\Electronically Co-Signed By: Oleksandr Allen DO\.br\Date and Time Co-Signed: 12/15/23 01:41 EDT ED Patient Education Noteon 12-15-2023 ED Patient Education Note ED Patient Education Note Normal [facility] ED Patient Summaryon 024 ED Patient Summary ED Patient Summary [address] [address] Patient Discharge Instructions Person Information Name: AGAPITO VARGAS Age: 33 Years Arrival Date: 12/14/2023 21:55:04 Discharge Diagnosis: Lower resp. tract infection Primary Care Physician: Pily Garcia DO Provider Information Primary Provider: Oleksandr Allen DO Advanced Private Investigator Surveillance:None The exam and treatment you received in the Emergency Department were for an urgent problem and are not intended as complete care. It is important that you follow up with a doctor, nurse practitioner, or physician?s safety assistant for ongoing care. If your symptoms [...] Follow-up Instructions: With: Address: When: Pily Garcia [facility] , [address] [address] [facility] () In 3 days 12/18/2023 Comments: Call Dr for diagnosis based follow up In the event that this physician does not participate in your insurance network, please consult with your insurance company to find a nearby participating provider. Patient Education Materials: A MESSAGE TO ALL PATIENTS REGARDING OPIOIDS PRESCRIPTION OPIOIDS: WHAT YOU NEED TO KNOW Prescription opioids can be used to help relieve jquhsfge-ij-jekhho pain and are often prescribed following a [...] be struggling with addiction, tell your health patient care director and ask for guidance or [facility] (more content not included)... Normal [facility] XR Chest 2 Viewson XR Chest [...] mGy = n/a DAP = n/a Normal [facility] MICRO OTHER TESTSOrdered By: [place] on 12-14-2023 Rapid COV Int NEG Ctl Pass (12/14/23 11:21 PM) Normal [facility] Man Sero Rapid COV Int POS Ctl Pass (12/14/23 11:21 PM) Normal [facility] Man Sero SARS-CoV+SARS-CoV-2 (COVID-19) Ag IA.rapid Ql (Resp) Not Detected 1 (12/14/23 11:21 PM) Normal Not Detected [facility] Man Sero Comment on above: Interpretive Data: Jodie lai [employer] Veritor System for Rapid Detection of SARS-CoV-2 [...] For in vitro diagnostic use. In the [facility], only for use under an Emergency Use [...] other viruses or pathogens; and, in the [facility], this test is only authorized for the [...] Int NEG Ctl Pass Normal Fis her [facility] Comment on above: Performed By: #### 2 [id number] #### [facility] [address] [place] [address] Rapid COV Int POS Ctl Pass Normal Fis [facility] Comment on above: Performed By: #### 2 [id number] #### [facility] [address] [place] [address] SARS-CoV+SARS-CoV-2 (COVID-19) Ag IA.rapid Ql (Resp) Not detected Normal Not Detected [facility] Comment on above: Result Comment: The [employer] System for Rapid Detection of SARS-CoV-2 is [...] or revoked sooner. Performed By: #### 2 [id number] #### [address] [address] Physician Orderon 07-30-2023 Physician Order [id number] 4#1.00TIFF Normal [facility] Physician Orderon 03-23-2023 Physician Order [id number]# 1.00TIFF Normal [facility] Nursing Assessmenton 023 Nursing Assessment [id number] 6#1.00CD:127 Normal [facility] Insurance Correspondence Off iceon 01-13-2023 Insurance Correspondence Office [id number] 9#1.00CD:127 Normal [facility] Insurance Correspondence Off ice01-09-2023 Insurance Correspondence Office [id number] 1#1.00CD:127 Normal [facility] Progress Note-Physicianon Progress Note-Physician Patient: AGAPITO VARGAS Age: 32 years Sex: Female : 1990 Associated Diagnoses: None Author: MD Ean, Jeanine Telles Postoperative Information Post Operative Note: Day 1, OPTIMET[employer]X : [id number]. Anesthetic utilized: Regional: Epidural. Health Status Allergies: Allergic Reactions (Selected) Severe Cefdinir- Tongue swelling. Severity Not Documented Amoxil- Rash. Penicillins- Rash. Problem list: All Problems Tobacco use / SNOMED CT [id number] / Confirmed Added secondary to social history documentation. Maternal tobacco use / SNOMED CT 2877572246 / Confirmed Maternal tobacco use / SNOMED CT 5378201730 / Confirmed Maternal tobacco use / SNOMED CT 9790376566 / Confirmed History of low back pain / SNOMED CT 265551894 / Confirmed Missed miscarriage / SNOMED CT 0695232723 / Confirmed Smoker / SNOMED CT [id number] [id number] / Confirmed Added secondary to documentation in Social History. Hepatitis C / SNOMED CT [id number]-[id number] / Confirmed pt. stated that she tested positive with first in 2015. pt. stated that she went to get treated after first , tested negative and was not treated. pt. states that she and children get tested at doctor's office, states she has not been positive since. 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 Flank pain / SNOMED CT 690314255 / Confirmed Urine frequency / SNOMED CT 331219309 / Confirmed Straining to void / SNOMED CT 777092999 / Confirmed Ovarian cyst / SNOMED CT 293380137 / Confirmed Abnormal vaginal bleeding / SNOMED CT 439466971 / Confirmed Hematuria, microscopic / SNOMED CT 754930599 / Confirmed Leaking of urine / SNOMED CT 8608477875 / Confirmed Low back pain / SNOMED CT 226451710 / Confirmed Resolved: Low blood sugar / SNOMED CT 445853820 Resolved: / SNOMED CT 837895485 Resolved: / SNOMED CT 224065034 Resolved: / SNOMED CT 437466219 Resolved: / SNOMED CT 347616286 Resolved: / SNOMED CT 375579228 Resolved: Anxiety / SNOMED CT 30300012 Resolved: Depression / SNOMED CT 283350121 Physical Examination No qualifying data available General: Alert and oriented, No acute distress. Neurologic: Normal sensory, Normal motor function, No focal deficits. Review / Management Condition: Stable. Assessment Anesthetic outcome No post-epidural complications noted.. Epidural catheter removed by nursing staff. Epidural tip intact. Epidural site C/D/I without erythema, swelling or tenderness.. Plan Transfer/ Discharge: Condition stable. Normal [facility] Comment on above: Result Comment: Elec [...] All Problems Tobacco use / SNOMED CT [id number]-M [id number] / Confirmed Added secondary to social history documentation. Maternal tobacco use / SNOMED CT 7622000188 / Confirmed Maternal tobacco use / SNOMED CT 0484165963 / Confirmed Maternal tobacco use / SNOMED CT 4421630488 / Confirmed History of low back pain / SNOMED CT 951366732 / Confirmed Missed miscarriage / SNOMED CT 9165197509 / Confirmed Smoker / SNOMED CT T371VR2W-0502-92A9-1 088-[id number] / Confirmed Added secondary to documentation in Social History. Hepatitis C / SNOMED CT [id number]-[id number]-8V95-L G0G-4348Q0R835K1 / Confirmed pt. stated that she tested positive with first in 2016. pt. stated that she went to get treated after first , tested negative and was not treated. pt. states that she and children get tested at doctor's office, states she has not been positive since. History of drug use / SNOMED CT 1264751221 / Confirmed History of IBS / SNOMED CT 2340236330 / Confirmed Congenital fusion of lumbar spine / SNOMED CT 85077921 / Confirmed Extra lumbar vertebrae with sacralization Flank pain / SNOMED CT 443479220 / Confirmed Urine frequency / SNOMED CT 800371576 / Confirmed Straining to void / SNOMED CT 155332298 / Confirmed Ovarian cyst / SNOMED CT 555444588 / Confirmed Abnormal vaginal bleeding / SNOMED CT 116997070 / Confirmed Hematuria, microscopic / SNOMED CT 965126030 / Confirmed Leaking of urine / SNOMED CT 8210335933 / Confirmed Low back pain / SNOMED CT 219597545 / Confirmed Resolved: Low blood sugar / SNOMED CT 146610920 Resolved: / SNOMED CT 347549387 Resolved: / SNOMED CT 277426253 Resolved: / SNOMED CT 921309426 Resolved: / SNOMED CT 776420733 Resolved: / SNOMED CT 221987532 Resolved: Anxiety / SNOMED CT 54854128 Resolved: Depression / SNOMED CT 396060970 Review of Systems Respiratory: Negative. Cardiovascular: Negative. [...] _11_ cm at skin., Test dose negative). Citizen Of [place] Society of Anesthesiologists (ASA) physical status classification: [...] bolus dose of 5cc q30min PRN. Normal [facility] Comment on above: Result Comment: Elec [...] delivering a 6 pound 5 ounce male infant with Apgars of eight and eight. A short cord was noted at the time of delivery. Arterial cord pH obtained. The placenta delivered spontaneously intact. Uterus contracted down well. No repair was necessary and both mom and were doing okay in the Room. The was being monitored with pulse oximetry monitoring with good 100% sO2 regions with supplemental oxygen. Calos Fuentes M.D. lr Dictated: 01/07/2023 [id number] Transcribed: 01/07/2023 [facility] Comment on above: Result Comment: Elec tronically Signed By: Gina LOMOS, Calos Ledbetter\.br\Date and Time Signed: 01/08/23 08:01 EDT Discharge Instructionson Discharge Instructions [id number] 89#1.00CD:127 [facility] GetWell Education Videoon GetWell Education Video Patient Caring for Yourself After Vaginal Delivery Yes Normal [facility] GetWell Education Video : Getting Your Baby to Latch Yes Patient [facility] GetWell Education Video Patient How to Use a Breast Pump Yes [facility] GetWell Education Video 5 Ways to Prepare for Yes Patient Normal [facility] GetWell Education Video Yes Patient Car Seat Safety [facility] GetWell Education Video Yes Patient Your Baby [facility] GetWell Education Video Understanding Depression [facility] GetWell Education Video Safe Sleep for Babies Yes Patient [facility] GetWell Education Video Avoiding Infections in the Hospital Yes Patient [facility] GetWell Education Video Yes Patient How to Prevent Shaken Baby Syndrome [facility] GetWell Education Video Yes Patient How to Hand Express Breast Milk [facility] Inpatient Clinical Summaryon 01-07-2023 Inpatient Clinical Summary [address] [address] Clinical Summary Person Information Name: AGAPITO VARGAS Noemi/[facility] Age: 32 Years : 1990 Sex: Female PCP: Pily Garcia DO Marital Status: Single Phone: [phone] Race: White Ethnicity: Non- or Language: [place] Citizen Visit Id: Visit Reason: Speciality: Acuity: 2 PP Enc Type: Inpatient Med Service: Obstetrics Arrival: 01/04/2023 20:34:44 Discharge: 01/07/2023 12:20:00 Dispo Type: Home (Routine DC) Address: [address] [place] [phone] Provider Notes: Diagnosis: (spontaneous vaginal delivery); Smoker [...] Follow up: With: Address: When: Dr. Fuentes [phone] Within 6 weeks Comments: Call for any problems. Patient Education Information: Care After Vaginal Delivery Normal [facility] Inpatient Patient Summaryon 01-07-2023 Inpatient Patient Summary [place] [address] Patient Discharge Instructions PERSON INFORMATION Name: AGAPITO [...] Follow up: With: Address: When: Dr. Fuentes [phone] Within 6 weeks Comments: Call for any [...] tear, o (more content not included)... Normal [facility] CBC w/Indiceson 01-06-2023 Erythrocyte distribution width (RBC) [Ratio] 14.2 % Normal 10.9-14.2 [facility] Comment on above: Performed By: #### 2 [id number] #### [facility] [address] [place] [address] Hematocrit (Bld) [Volume fraction] 31.4 % Low 34.0-46.0 [facility] Comment on above: Performed By: #### 2 [id number] #### [facility] [address] [place] [address] Hemoglobin (Bld) [Mass/Vol] 10.7 g/dL Low 12.0-16.0 [facility] Comment on above: Performed By: #### 2 [id number] #### [facility] [address] [place] [address] MCH (RBC) [Entitic mass] 31.4 pg Normal 27.0-34.0 [facility] Comment on above: Performed By: #### 2 [id number] #### [facility] [address] [place] [address] MCHC (RBC) [Mass/Vol] 34.0 g/dL Normal 31.4-36.0 [facility] Comment on above: Performed By: #### 2 [id number] #### [facility] [address] [place] [address] MCV (RBC) [Entitic vol] 92.4 fL Normal 80.0-100.0 [facility] Comment on above: Performed By: #### 2 609801 #### [facility] [address] [place] [address] Platelet mean volume (Bld) [Entitic vol] 10.5 fL Normal 6.4-10.8 [facility] Comment on above: Performed By: #### 2 [id number] #### [facility] [address] [place] [address] Platelets (Bld) [#/Vol] 148.0 E9/L Low 150.0-500.0 [facility] Comment on above: Performed By: #### 2 445348 #### [facility] [address] [place] [address] RBC (Bld) [#/Vol] 3.4 E12/L Low 4.3-5.9 [facility] Comment on above: Performed By: #### 2 [id number] #### [facility] [address] [place] [address] WBC corrected for nucl RBC Auto (Bld) [#/Vol] 10.8 E9/L Normal 4.0-11.0 [facility] Comment on above: Performed By: #### 2 [id number] #### [facility] [address] [place] [address] Consenton 01-05-2023 Consent [id number] #1.00CD:127 Normal [facility] Insurance Correspondence Off iceon 01-05-2023 Insurance Correspondence Office [id number] 2#1.00CD:127 Normal [facility] Insurance Correspondence Office [id number] 1#1.00CD:127 Normal [facility] UA With Cult Reflexon 2022 Bilirubin Ql (U) Negative Normal Negative [facility] Comment on above: Order Comment: Urina ry Catheter Insertion triggered Urinalysis With Culture Reflex order by discern. Performed By: #### 1 [id number] #### [facility] [address] [place] [address] Clarity (U) CLEAR Normal Clear [facility] Comment on above: Order Comment: Urina ry Catheter Insertion triggered Urinalysis With Culture Reflex order by discern. Performed By: #### 1 [id number] #### [facility] [address] [place] [address] Color (U) YELLOW Normal Yellow [facility] Comment on above: Order Comment: Urina ry Catheter Insertion triggered Urinalysis With Culture Reflex order by discern. Performed By: #### 1 [id number] #### [facility] [address] [place] [address] Epithelial cells.squamous LM.HPF (Urine sed) [#/Area] 0-2 Normal 0-2 [facility] Comment on above: Order Comment: Urina ry Catheter Insertion triggered Urinalysis With Culture Reflex order by discern. Performed By: #### 1 [id number] #### [facility] [address] [place] [address] Glucose Test strip (U) [Mass/Vol] Negative Normal Negative [facility] Comment on above: Order Comment: Urina ry Catheter Insertion triggered Urinalysis With Culture Reflex order by discern. Performed By: #### 1 [id number] #### [facility] [address] [place] [address] Hemoglobin Ql (U) 1+ Abnormal Negative [facility] Comment on above: Order Comment: Urina ry Catheter Insertion triggered Urinalysis With Culture Reflex order by discern. Performed By: #### 1 [id number] #### [facility] [address] [place] [address] Ketones (U) [Mass/Vol] Negative Normal Negative [facility] Comment on above: Order Comment: Urina ry Catheter Insertion triggered Urinalysis With Culture Reflex order by discern. Performed By: #### 1 [id number] #### [facility] [address] [place] [address] New [place]ucha.plasma/Lithiu m.RBC (Bld) [Mass ratio] 0-3 Normal 0-3 [facility] Comment on above: Order Comment: Urina ry Catheter Insertion triggered Urinalysis With Culture Reflex order by discern. Performed By: #### 1 [id number] #### [facility] [address] [place] [address] Nitrite Ql (U) Negative Normal Negative [facility] Comment on above: Order Comment: Urina ry Catheter Insertion triggered Urinalysis With Culture Reflex order by discern. Performed By: #### 1 [id number] #### [facility] [address] [place] [address] pH (U) 7.0 [pH] Invalid Interpretation Code 5.0-9.0 [facility] Comment on above: Order Comment: Urina ry Catheter Insertion triggered Urinalysis With Culture Reflex order by discern. Performed By: #### 1 [id number] #### [facility] [address] [place] [address] Protein (U) [Mass/Vol] Negative Normal Negative [facility] Comment on above: Order Comment: Urina ry Catheter Insertion triggered Urinalysis With Culture Reflex order by discern. Performed By: #### 1 [id number] #### [facility] [address] [place] [address] Specific gravity (U) [Rel density] 1.010 Invalid Interpretation Code 1.005-1.030 [facility] Comment on above: Order Comment: Urina ry Catheter Insertion triggered Urinalysis With Culture Reflex order by discern. Performed By: #### 1 [id number] #### [facility] [address] [place] [address] Type of Urine collection method Reyna Normal [facility] Comment on above: Order Comment: Urina ry Catheter Insertion triggered Urinalysis With Culture Reflex order by discern. Performed By: #### 1 [id number] #### [facility] [address] [place] [address] Urobilinogen Qn (U) 0.2 {Corey'U}/dL Normal 0.0-1.0 [facility] Comment on above: Order Comment: Urina ry Catheter Insertion triggered Urinalysis With Culture Reflex order by discern. Performed By: #### 1 [id number] #### [facility] [address] [place] [address] WBC Auto Ql (U) Negative Normal Negative [facility] Comment on above: Order Comment: Urina ry Catheter Insertion triggered Urinalysis With Culture Reflex order by discern. Performed By: #### 1 [id number] #### [facility] [address] [place] [address] WBC LM.HPF (Urine sed) [#/Area] 0-5 Normal 0-5 [facility] Comment on above: Order Comment: Urina ry Catheter Insertion triggered Urinalysis With Culture Reflex order by discern. Performed By: #### 1 [id number] #### [facility] [address] [place] [address] ABO/Rhon 01-04-2023 ABO/Rh Positive Invalid Interpretation Code [facility] Comment on above: Performed By: #### 1 [id number], [id number], [id number], [id number] ####[facility] [address] [place] [address] ABO/Rh History Checkon 01-04 ABO/Rh History Check Verified Hx Blood Type Normal [facility] Comment on above: Performed By: #### 1 [id number], [id number], [id number], [id number] ####[facility] [address] [place] [address] ABSCon 01-04-2023 ABSC Gel Interp Negative Normal [facility] Comment on above: Performed By: #### 1 [id number], [id number], [id number], [id number] ####[address] [address] Blood Bank ID#on 01-04-2023 BBID# [id number] Invalid Interpretation Code [facility] Comment on above: Performed By: #### 1 [id number], [id number], [id number], [id number] ####[address] [address] CBC w/Indiceson 01-04-2023 Erythrocyte distribution width (RBC) [Ratio] 14.3 % High 10.9-14.2 [facility] Comment on above: Performed By: #### 2 [id number] ####[address] [address] Hematocrit (Bld) [Volume fraction] 33.6 % Low 34.0-46.0 [facility] Comment on above: Performed By: #### 2 [id number] ####[address] [place] [address] Hemoglobin (Bld) [Mass/Vol] 11.3 g/dL Low 12.0-16.0 [facility] Comment on above: Performed By: #### 2 [id number] ####[facility] [address] [place] [address] MCH (RBC) [Entitic mass] 30.9 pg Normal 27.0-34.0 [facility] Comment on above: Performed By: #### 2 [id number] ####[address] [address] MCHC (RBC) [Mass/Vol] 33.7 g/dL Normal 31.4-36.0 [facility] Comment on above: Performed By: #### 2 [id number] ####[address] [address] MCV (RBC) [Entitic vol] 91.7 fL Normal 80.0-100.0 [facility] Comment on above: Performed By: #### 2 [id number] ####[address] [address] Platelet mean volume (Bld) [Entitic vol] 10.8 fL Normal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
[2024-02-05] MEDS: BACITRACIN OINTMENT 28.4 GM TUBE 1 APPLIC TOPICAL (13:24)
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
[2024-02-05] MEDS: KETOROLAC TROMETHAMINE 30 MG/ML VIAL IM (13:25)
== END 2024-02-05 13:28 | disposition home or self-care (01) ==
PROVIDERS: Emergency Provider Emergency Medicine
DX: T22.111A Burn of first degree of right forearm, initial encounter (principal); T24.211A Burn of second degree of right thigh, initial encounter; X10.2XXA Contact with fats and cooking oils, initial encounter; F17.200 Nicotine dependence, unspecified, uncomplicated
CPT/HCPCS: 96372; 99284; J1885